=== PATIENT | male | born 1980 | race Caucasian/White ===

== ENCOUNTER 2019-03-22 11:19 | Emergency (ER) | payer MEDICAID, OTHER ==
[2019-03-22 11:19] VITALS: BMI 29.7
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
[2019-03-22 11:39] VITALS: TEMP 99; O2SAT 99
[2019-03-22] MEDS ORDERED: Morphine 4 mg/ml ISec IM STA (11:42)
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
[2019-03-22 14:14] VITALS: BP 135/74; PULSE 78; RESP 18
== END 2019-03-22 14:14 | disposition home or self-care (01) ==
LOC: ED 11:19
DX: S09.90XA Unspecified injury of head, initial encounter (principal); S16.1XXA Strain of muscle, fascia and tendon at neck level, initial encounter; S39.012A Strain of muscle, fascia and tendon of lower back, initial encounter; V49.9XXA Car occupant (driver) (passenger) injured in unspecified traffic accident, initial encounter
CPT/HCPCS: 70450; 71046; 72070; 72100; 72125; 96372; 99284; J2270